=== PATIENT | male | born 1955 | race Caucasian/White ===

== ENCOUNTER 2018-10-18 11:53 | Day surgery (SDC) | payer OTHER ==
[2018-10-18] MEDS ORDERED: FENTAnyl 50 MCG/ML VIAL (15:13)
[2018-10-18] MEDS ORDERED: MEPERIDINE 50 MG INJ (15:14)
[2018-10-18] MEDS ORDERED: MIDAZOLAM 1 MG/ML 2 ML INJ ×2 (15:14→15:54)
== END 2018-10-18 15:28 | disposition home or self-care (01) ==
LOC: GIL 11:53
DX: Z12.11 Encounter for screening for malignant neoplasm of colon (principal); K64.8 Other hemorrhoids
CPT/HCPCS: 45378